=== PATIENT | female | born 1940 | race Caucasian/White ===

== ENCOUNTER 2017-04-11 12:20 | Inpatient (IN) | payer OTHER, BC ==
[~2017-04-11] VITALS: Ht 149.9 cm; Wt 43.1 kg
--- NOTE | ~2017-04-11 | EKG ---
[address] [address] ELECTROCARDIOGRAM REPORT Name: JAMES EARL Room #: 423-1 ADM IN M.R.#: [id number] Admission: 04/11/17 Attend Phys: Alejandro Nieves MD Discharge: Date of : 36 Report #: [id number] THIS REPORT FOR: //name// [facility] ED Test Date: 2017-04-11 Test Time: 12:50:54 Pat Name: JAMES EARL Department: Room: [facility] Gender: F Crew Attendant: AGGIE : 1940 Requested By: Tyree Lopez Order Number: [id number] MD: Lucius Shaikh Measurements Intervals [place] Rate: 58 P: 21 NE: 163 QRS: 84 QRSD: 81 T: -2 QT: 441 QTc: 434 Interpretive Statements Sinus rhythm Borderline T abnormalities, inferior leads No previous ECG available for comparison Electronically Signed On 04-11-2017 17:05:28 CLINICAL DATA ABSTRACTOR by Lucius Shaikh [email or web address] <ELECTRONICALLY SIGNED> By: Lucius Shaikh MD 04/11/17 1705 1250 1250 Lucius Shaikh MD /JER
[2017-04-11 12:28] VITALS: BP 144/54
[2017-04-11 13:24] LABS: HEMATOCRIT 40.5 % (37.0-47.0); HEMOGLOBIN 13.4 gm/dL (12.0-15.0); MCHC 33.1 g/dL (28.0-37.0); MCV 87.6 fL (80.0-100.0); RBC 4.63 mil/uL (4.20-5.00); RDW 12.8 % (10.5-14.5); WBC 6.6 thou/uL (4.0-11.0)
[2017-04-11 13:28] LABS: CALCIUM 9.3 mg/dL (8.5-10.1); CREATININE 0.9 mg/dL (0.6-1.0); MAGNESIUM 2.3 mg/dL (1.8-2.4); POTASSIUM 4.7 mmol/L (3.5-5.1)
[2017-04-11 14:49] LABS: URINE BILIRUBIN NEGATIVE (Negative); URINE BLOOD NEGATIVE (Negative); URINE COLOR YELLOW; URINE GLUCOSE-RANDOM* NEGATIVE (Negative); URINE KETONES NEGATIVE (Negative); URINE PROTEIN (DIPSTICK) NEGATIVE (Negative); URINE UROBILINOGEN 0.2 E.U./dl (0.2-1.0)
[2017-04-11 14:51] LABS: URINE LEUKOCYTES-REFLEX TRACE (Negative)
[2017-04-11 15:21] VITALS: BP 156/68
[2017-04-11 15:43] VITALS: BP 156/80
[2017-04-11 16:00] VITALS: BP 160/72
[2017-04-11] MEDS ORDERED: CHILDREN'S ASPI81 M1 PO (17:08)
[2017-04-11] MEDS ORDERED: NAMENDA 5 MG TAB5 M1 PO (17:08)
[2017-04-11 18:00] VITALS: BP 151/70
[2017-04-11 20:30] VITALS: BP 140/72
[2017-04-12 04:30] VITALS: BP 146/69
[2017-04-12 06:07] LABS: HEMATOCRIT 39.6 % (37.0-47.0); HEMOGLOBIN 13.2 gm/dL (12.0-15.0); MCH 28.8 pg (26.0-34.0); MCHC 33.3 g/dL (28.0-37.0); MCV 86.6 fL (80.0-100.0); RBC 4.57 mil/uL (4.20-5.00); RDW 12.6 % (10.5-14.5); WBC 6.6 thou/uL (4.0-11.0)
[2017-04-12 06:15] LABS: CALCIUM 8.9 mg/dL (8.5-10.1); POTASSIUM 3.9 mmol/L (3.5-5.1)
[2017-04-12 08:00] VITALS: BP 144/67
[2017-04-12] MEDS ORDERED: ANTIVERT25 MG PO (11:00)
[2017-04-12 14:13] VITALS: BP 144/67
[2017-04-12 15:57] VITALS: BP 114/77
== END 2017-04-12 16:14 | disposition home health service (06) | DRG 690 ==
LOC: ER 12:20 → EROBS 15:04 → 4E 15:04
PROVIDERS: Emergency Medicine; Hospitalist
DX: N39.0 Urinary tract infection, site not specified (principal); E78.00 Pure hypercholesterolemia, unspecified; F01.50 Vascular dementia, unspecified severity, without behavioral disturbance, psychotic disturbance, mood disturbance, and anxiety; Z79.899 Other long term (current) drug therapy; Z79.82 Long term (current) use of aspirin; Z87.891 Personal history of nicotine dependence; Z98.42 Cataract extraction status, left eye; Z98.41 Cataract extraction status, right eye
CPT/HCPCS: 10183